=== PATIENT | male | born 1945 | race Caucasian/White ===

== ENCOUNTER 2018-04-19 12:16 | Day surgery (SDC) | payer OTHER, MEDICARE ==
[~2018-04-19] VITALS: Ht 180.3 cm; Wt 108.1 kg
[~2018-04-19 12:16] MED LIST: CARV25 PO; EZET10 PO; FLONASE ALLERG9.9 ML NS; GLIM2 PO; Glucophage1000 MG PO; JARDIANCE25 MG PO; LISHYD2025 PO; NIFE30ER PO; Simvastatin20 MG PO
== END 2018-04-19 14:36 | disposition home or self-care (01) ==
LOC: ORSCSDS 12:16
PROVIDERS: Internal Medicine Gastroenterology
PROC: 0DBK8ZX Excision of Ascending Colon, Via Natural or Artificial Opening Endoscopic, Diagnostic (ICD-10-PCS; principal; 2018-04-19 13:30)
PROC: 0DBP8ZX Excision of Rectum, Via Natural or Artificial Opening Endoscopic, Diagnostic (ICD-10-PCS; principal; 2018-04-19 13:30)
PROC: 0DBL8ZX Excision of Transverse Colon, Via Natural or Artificial Opening Endoscopic, Diagnostic (ICD-10-PCS; principal; 2018-04-19 13:30)
PROC: 0DBH8ZX Excision of Cecum, Via Natural or Artificial Opening Endoscopic, Diagnostic (ICD-10-PCS; principal; 2018-04-19 13:30)
DX: Z12.11 Encounter for screening for malignant neoplasm of colon (principal); Z86.010 Personal history of colon polyps; D12.3 Benign neoplasm of transverse colon; D12.0 Benign neoplasm of cecum; D12.4 Benign neoplasm of descending colon; D12.5 Benign neoplasm of sigmoid colon; D12.8 Benign neoplasm of rectum; K57.30 Diverticulosis of large intestine without perforation or abscess without bleeding; G47.30 Sleep apnea, unspecified; I10 Essential (primary) hypertension; E11.9 Type 2 diabetes mellitus without complications; Z79.899 Other long term (current) drug therapy
CPT/HCPCS: 82947; 88305; J1980; J7120

== ENCOUNTER 2021-10-07 12:25 | Day surgery (SDC) | payer OTHER ==
[~2021-10-07] VITALS: Ht 177.8 cm; Wt 107.6 kg
== END 2021-10-07 15:18 | disposition home or self-care (01) ==
LOC: ORSCSDS 12:25
PROVIDERS: Internal Medicine Gastroenterology
PROC: 0DBM8ZX Excision of Descending Colon, Via Natural or Artificial Opening Endoscopic, Diagnostic (ICD-10-PCS; principal; 2021-10-07 13:45)
PROC: 0DBL8ZX Excision of Transverse Colon, Via Natural or Artificial Opening Endoscopic, Diagnostic (ICD-10-PCS; principal; 2021-10-07 13:45)
PROC: 0DBH8ZX Excision of Cecum, Via Natural or Artificial Opening Endoscopic, Diagnostic (ICD-10-PCS; principal; 2021-10-07 13:45)
PROC: 0DBP8ZX Excision of Rectum, Via Natural or Artificial Opening Endoscopic, Diagnostic (ICD-10-PCS; principal; 2021-10-07 13:45)
DX: Z12.11 Encounter for screening for malignant neoplasm of colon (principal); Z86.010 Personal history of colon polyps; K57.30 Diverticulosis of large intestine without perforation or abscess without bleeding; D12.4 Benign neoplasm of descending colon; D12.0 Benign neoplasm of cecum; D12.3 Benign neoplasm of transverse colon; K62.1 Rectal polyp; I10 Essential (primary) hypertension; G47.33 Obstructive sleep apnea (adult) (pediatric); Z85.46 Personal history of malignant neoplasm of prostate; E11.9 Type 2 diabetes mellitus without complications; E66.9 Obesity, unspecified; Z68.34 Body mass index [BMI] 34.0-34.9, adult; Z79.84 Long term (current) use of oral hypoglycemic drugs; Z79.899 Other long term (current) drug therapy
CPT/HCPCS: 82947; 88305; J0461; J2405; J2704; J7120